=== PATIENT | female | born 1945 | race Caucasian/White ===

== ENCOUNTER 2018-01-24 11:29 | Day surgery (SDC) | payer MEDICARE, OTHER ==
[2018-01-24 12:22] LABS: #Lymphocytes 1.5 thou/uL (1.20-3.40); #Neutrophils 13.6 thou/uL (1.40-6.50); %Basophils 0.2 % (0.0-1.0); %Eosinophils 0.2 % (0.0-10.0); %Lymphocytes 9.1 % (21.0-51.0); %Monocytes 6.3 % (0.0-10.0); %Neutrophils 84.2 % (42.0-75.0); Hemoglobin 16.1 g/dL (12.0-16.0); Mean Corpuscular HGB CONC 32.7 g/dL (32.0-36.0); Mean Corpuscular Hemoglobin 28.9 pg (27.0-31.0); Mean Corpuscular Volume 88.5 fL (78.0-98.0); Mean Platelet Volume 7.6 fL (7.4-10.4); Platelet Count 186 thou/uL (130-400); RBC Distribution Width 13.1 % (11.5-14.5); Red Blood Cell (RBC) Count 5.56 mill/uL (4.20-5.40); White Blood Cell (WBC) Count 16.1 thou/uL (4.8-10.8)
[2018-01-24 12:44] LABS: ALT (SGPT) 15 U/L (8-55); AST (SGOT) 12 U/L (5-34); Albumin 4.4 g/dL (3.4-4.8); Alkaline Phosphatase 109 U/L (40-150); Anion Gap 13 mmol/L (10-20); BUN (Urea Nitrogen) 13 mg/dL (9.8-20.1); Bilirubin, Total 1.9 mg/dL (0.2-1.2); Calc. Creatinine Clearance 0 mL/min (70-130); Calcium 10.1 mg/dL (7.8-10.44); Carbon Dioxide 18 mmol/L (23-31); Chloride 108 mmol/L (98-107); Estimated GFR-MDRD 74; Globulin 2.7 g/dL (2.4-3.5); Glucose 120 mg/dL (80-115); Lipase 6 U/L (8-78); Potassium 3.9 mmol/L (3.5-5.1); Protein, Total 7.1 g/dL (6.0-8.3); Sodium 135 mmol/L (136-145)
[2018-01-24] MEDS ORDERED: Piperacillin/Tazobactam 4.5 GM VIAL ONE (13:40)
--- NOTE | 2018-01-24 14:10 | CT ---
CT ABDOMEN AND PELVIS WITH CONTRAST: Date: 01/24/18 COMPARISON: None. HISTORY: Abdominal pain and cramping that began yesterday around 8:00 at night. Right-sided abdominal tenderne ss. TECHNIQUE: Multiple contiguous axial images were obtained in a CT of the abdomen and pelvis with contrast. Coron al reformats performed. FINDINGS: There are hypodensities in the liver and kidneys, which are too small to characterize, but likely rep resent cysts. There is a 1.5 cm cyst in the right lobe of the liver. The gallbladder, adrenal glands, spleen, and pancreas are unremarkable. There is a fluid-filled structure adjacent to the cecum measuring 1.3 cm in width, with subtle surrou nding stranding change. This could represent a very short appendix with inflammatory change. No free air or free fluid seen in the abdomen or pelvis. The small bowel is unremarkable. There is scattered diverticula in the colon. The reproductive organs are unremarkable. No abdominal or pelvic lymphadeno jenn seen. Atherosclerotic calcifications are seen in the aorta. Degenerative changes are seen in the spine. There is a calcified granuloma in the right lung base. Th e abdominal wall soft tissues are unremarkable. IMPRESSION: There is a fluid-filled structure in the right lower quadrant of the abdomen adjacent to the cecum, w hich may represent a very short appendix. The inflammatory changes suggest acute appendicitis. Correl ate with white blood cell count and right lower quadrant tenderness. Dr. Jones notified of findings at 1333 hours on 01/24/18. CODE CR. POS: [facility]
--- NOTE | 2018-01-24 14:11 | HP ---
HISTORY OF PRESENT ILLNESS: Shell Guzman is a 72-year-old female from [place], [place] visits this area in preparation for a birthday constitution party of a relative. She had persistent right lower quadrant pallavi n since last night, followed by nausea and vomiting without fever, presents to the emergency room, no angel to have a white count of 16, hemoglobin 16 and CAT scan confirms appendicitis. She has suffered anorexia. ALLERGIES: None. TOBACCO: None. ALCOHOL: None. MEDICATIONS: None. PAST SURGICAL HISTORY: Right total knee replacement, right shoulder replacement. PAST MEDICAL HISTORY: Noncontributory. She has never had a colonoscopy. REVIEW OF SYSTEMS: Ten point noncontributory. PHYSICAL EXAMINATION: VITAL SIGNS: Blood pressure 124/74, heart rate 74, respiratory rate 18. HEENT: Unremarkable. LUNGS: Clear to auscultation. CARDIAC: Regular rate and rhythm without murmur or gallop. ABDOMEN: Soft, tenderness in right lower quadrant with guarding and rebound. EXTREMITIES: Unremarkable. CAT scan confirms appendicitis. LABORATORIES: White count 16, hemoglobin 16, platelet count 186,000. Sodium 135, potassium 3.9, car bon dioxide 18, creatinine 0.7, GFR is 74, glucose 120, bilirubin 1.9. ASSESSMENT AND PLAN: Acute appendicitis. Recommend laparoscopic video appendectomy. Risk of infect ion, bleeding, visceral and biliary injury discussed, she consents.
[2018-01-24 14:14] LABS: Bilirubin Negative (Negative); Blood, Urine Moderate (Negative); Clarity CLEAR (Clear); Glucose, Urine (Dipstick) Negative (Negative); Leukocyte Small (Negative); Nitrite Negative (Negative); Protein, Urine (Dipstick) Negative (Neg-Trace); Specific Gravity, Urine 1.024 (1.002-1.036); Urobilinogen 0.2 mg/dL (0.2-1.0)
[2018-01-24 14:16] LABS: Bacteria/HPF Rare-Few HPF (None Seen); Hyaline Casts/LPF 0-3 HYALINE CAST LPF (0-3 Hyaline); Pathc Cast-AUWi Flag 0.29 (0-2.49); RBC/HPF 21-50 HPF (0-3)
[2018-01-24] MEDS ORDERED: ISOVUE-370 76%-LOCM 1 ML ONE (14:22)
[2018-01-24] MEDS ORDERED: Ketorolac Tromethamine 30 MG/ML VIAL ONE (14:59)
[2018-01-24] MEDS ORDERED: Lidocaine 1% PF 5 ML VIAL ONE (15:03)
[2018-01-24] MEDS ORDERED: Dexamethasone 20 MG/5 ML VIAL ONE (15:03)
[2018-01-24] MEDS ORDERED: Metoclopramide HCl 10 MG/2 ML VIAL ONE (15:03)
[2018-01-24] MEDS ORDERED: Glycopyrrolate 0.2 MG/ML 5 ML SYRINGE ONE (15:03)
[2018-01-24] MEDS ORDERED: Succinylcholine Chloride 20 MG/ML 10 ml SYRINGE FS ONE (15:03)
[2018-01-24] MEDS ORDERED: PHENYLEPHRINE-NS 100 MCG/ML 10 ML SYRINGE ONE (15:03)
[2018-01-24] MEDS ORDERED: Ondansetron HCl/PF 4 MG/2 ML Vial ONE (15:03)
[2018-01-24] MEDS ORDERED: PROPOFOL 200 MG/20 ML VIAL ONE (15:03)
[2018-01-24] MEDS ORDERED: Bupivacaine/Epinephrine 0.25% 30 ML VIAL ONE (15:05)
[2018-01-24] MEDS ORDERED: Bupivacaine HCl 0.5%/Epinephrine 1:200,000/PF 30 ml Vial ONE (15:05)
[2018-01-24] MEDS ORDERED: Scopolamine 1.5 mg/72 hour Patch ONE (15:57)
[2018-01-24] MEDS ORDERED: Fentanyl 100 MCG/2 ML VIAL ONE (16:29)
[2018-01-24] MEDS ORDERED: Promethazine HCl 25 MG/ML VIAL ONE (16:41)
[2018-01-24] MEDS ORDERED: Amoxicillin/Potassium Clav 875 MG TAB PO SCH (20:00)
--- NOTE | 2018-01-24 23:12 | OP ---
DATE OF PROCEDURE: 01/24/2018 PREOPERATIVE DIAGNOSIS: Acute appendicitis. POSTOPERATIVE DIAGNOSIS: Acute gangrenous appendicitis. PROCEDURE: Laparoscopic video appendectomy, removed in a bag. SURGEON: Atif Fish MD ANESTHESIA: General; local 0.5% Marcaine with epinephrine, 30 mL. DESCRIPTION OF PROCEDURE: The patient was taken to the operating room, where under general anesthesi a, Shukla catheter was placed at the beginning of the procedure and removed at the end. Abdomen was p repared with ChloraPrep, draped in routine fashion. Local anesthetic infiltrated into the skin and s ubcutaneous tissue about each port site. Infraumbilical incision was made. Pneumoperitoneum to 15 m mHg was obtained with the Veress needle, replacing it with a 5-port and laparoscope inserted. Suprap ubic incision was made and a 12-port placed. Right lateral subcostal incision made and a 5-port plac ed. Appendix was gangrenous. Mesoappendix was taken down to the stump of the appendix using LigaSur e for energy source. Cecal stump was divided with Endo-NADJA blue load staple. Appendix was placed in Endobag and removed. Suprapubic fascia was approximated with 0 Vicryl and staple for cecal stump. Hemostasis gained with clip application. Area was irrigated. Irrigant was evacuated. Good hemostas is was ensured. All irrigant and pneumoperitoneum evacuated. All instruments removed and all skin i ncisions were approximated with interrupted subdermal 4-0 Monocryl and DermaGlue applied.
--- NOTE | 2018-01-26 21:58 | EKG ---
Test Reason : Blood Pressure : / mmHG Vent. Rate : 095 BPM Atrial Rate : 095 BPM P-R Int : 110 ms QRS Dur : 092 ms QT Int : 364 ms P-R-T Axes : 006 -07 000 degrees QTc Int : 457 ms Sinus rhythm with short [place] Nonspecific ST and T wave abnormality No STEMI Abnormal ECG Confirmed by BRITTANY Juares, MARILIN ([id number]), order editor AL ROLDAN ([id number]) on 01/26/2018 9:57:28 PM Referred By: Confirmed By:MARILIN SOTO M.D.
== END 2018-01-24 20:10 | disposition home or self-care (01) ==
LOC: ERS 11:29 → SDC 14:13
PROVIDERS: ATTEND Specialist
PROC: 0DTJ4ZZ Resection of Appendix, Percutaneous Endoscopic Approach (ICD-10-PCS; principal; 2018-01-24)
DX: K35.80 Unspecified acute appendicitis (principal)
CPT/HCPCS: 74177; 80053; 81003; 81015; 82274; 83690; 85025; 88304; 93005; 96365; 96375; J0131; J0670; J1100; J1885; J2001; J2270; J2405; J2543; J2550; J2704; J2765; J3010